=== PATIENT | male | born 1940 | race Caucasian/White ===

== ENCOUNTER → 2017-11-07 | Outpatient (CLI) | payer OTHER ==
[~2017-11-07] MED LIST: ACET325; AMLO5 PO; ASCO500 PO; ASPI325 PO; ATEN50 PO; ATOR20 PO; ATOR40TA PO; BACL10 PO; BISA10S; BISM300CH; CALCA500CH; CILO50 PO; CLOP75 PO; CYAN500 PO; Cilostazol50 MG PO; DOCU100; ENOX40I SC; ESCI10 PO; FAMO20; FOLI1 PO; FOLIC ACID PO; Feosol45 MG; Ferrous Fumara324 MG PO; GLIP10 PO; Glucophage1000 MG PO; Glucotrol10 MG PO; HYDACE10B; HYDACE10B PO; HYDCHL25 PO; INSULANPEN; INSULANPEN SC; Iron Supplemen325 MG PO; Januvia50 MG PO; LEVFLO500 PO; LISI20 PO; LISI5 PO; METF500 PO; METF850; MIRT15 PO; MULT50L; MULTI VITAMIN1 EACH PO; MULVITMINF PO; Milk Of Ma400 MG/5 M; NEBI5 PO; Norco 10-325 T1 EACH PO; OMEP20ER PO; PANT40 PO; POTCHL20ER PO; RIFA300 PO; RXHYD5325 PO; RXSULTRIDS PO; SKIEMOTC1; TOUJEO SOL300 UNIT/1 SC; ZOLP5
[2017-11-07 14:18] LABS: Bilirubin, Urine Neg (Neg); Blood, Urine Neg (Neg); Glucose Qualitative, Urine Neg (Neg); Ketones, Urine Neg (Neg); Leukocyte Esterase, Urine Neg (Neg); Nitrite, Urine Neg (Neg); Protein, Urine Neg (Neg); Urobilinogen, Urine NORM (Normal)
[2017-11-07 14:30] LABS: Appearance, Urine Clear (Clear); Color, Urine Pale Yellow (P-Yellow)
== END | disposition home or self-care (01) ==
LOC: LAB 13:52
DX: N39.0 Urinary tract infection, site not specified (principal)
CPT/HCPCS: 81003; 87086

== ENCOUNTER 2018-02-07 18:12 | Emergency (ER) | payer OTHER ==
[~2018-02-07] VITALS: Ht 180.3 cm; Wt 94.3 kg
[~2018-02-07 18:12] MED LIST changes: -CYAN500 PO; -FOLIC ACID PO; -Ferrous Fumara324 MG PO; -Januvia50 MG PO; -PANT40 PO; -TOUJEO SOL300 UNIT/1 SC
[2018-02-07] MEDS ORDERED: FOLIC ACID PO (18:52)
[2018-02-07] MEDS ORDERED: Ferrous Fumara324 MG PO (18:52)
[2018-02-07] MEDS ORDERED: Januvia50 MG PO (19:01)
[2018-02-07] MEDS ORDERED: PANT40 PO (19:02)
[2018-02-07] MEDS ORDERED: TOUJEO SOL300 UNIT/1 SC (19:03)
[2018-02-07] MEDS ORDERED: CYAN500 PO (19:04)
[2018-02-07] MEDS ORDERED: ASCO500 PO (19:04)
== END 2018-02-07 20:25 | disposition home or self-care (01) ==
LOC: ER 18:12
DX: I10 Essential (primary) hypertension (principal); E11.9 Type 2 diabetes mellitus without complications; Z79.899 Other long term (current) drug therapy; Z79.82 Long term (current) use of aspirin; Z79.4 Long term (current) use of insulin
CPT/HCPCS: 93005; 93010; 99283

== ENCOUNTER → 2018-05-12 | Outpatient (CLI) | payer OTHER ==
[~2018-05-12] MED LIST changes: +CYAN500 PO; +FOLIC ACID PO; +Ferrous Fumara324 MG PO; +Januvia50 MG PO; +PANT40 PO; +TOUJEO SOL300 UNIT/1 SC
[2018-05-12 15:17] LABS: Bilirubin, Urine Neg (Neg); Blood, Urine 5+ (Neg); Glucose Qualitative, Urine Neg (Neg); Ketones, Urine Neg (Neg); Leukocyte Esterase, Urine 3+ (Neg); Nitrite, Urine Neg (Neg); Protein, Urine 2+ (Neg); Urobilinogen, Urine NORM (Normal)
[2018-05-12 15:48] LABS: Appearance, Urine Cloudy (Clear); Color, Urine Yellow (P-Yellow)
[2018-05-12 15:49] LABS: Bacteria Many /hpf; Red Blood Cells, Urine 50-100 /hpf (0-2); Squamous Epithelial Cells Few /hpf (Few); White Blood Cells, Urine 25-50 /hpf (0-5)
== END | disposition home or self-care (01) ==
LOC: LAB SHORT 12:45 → LAB 12:45
DX: N39.0 Urinary tract infection, site not specified (principal)
CPT/HCPCS: 81001; 87077; 87086; 87186

== ENCOUNTER → 2018-10-27 | Outpatient (CLI) | payer OTHER ==
[2018-10-27 13:41] LABS: Appearance, Urine Clear (Clear); Bilirubin, Urine Neg (Neg); Blood, Urine Neg (Neg); Color, Urine Yellow (P-Yellow); Glucose Qualitative, Urine 1+ (Neg); Ketones, Urine Neg (Neg); Leukocyte Esterase, Urine Neg (Neg); Nitrite, Urine Neg (Neg); Protein, Urine 1+ (Neg); Urobilinogen, Urine NORM (Normal)
== END | disposition home or self-care (01) ==
LOC: LAB SHORT 13:18 → LAB 13:18
DX: N39.0 Urinary tract infection, site not specified (principal)
CPT/HCPCS: 87086

== ENCOUNTER → 2019-01-26 | Outpatient (CLI) | payer OTHER ==
[2019-01-26 12:27] LABS: Bilirubin, Urine Neg (Neg); Blood, Urine Neg (Neg); Glucose Qualitative, Urine Neg (Neg); Ketones, Urine Neg (Neg); Leukocyte Esterase, Urine Neg (Neg); Nitrite, Urine Neg (Neg); Protein, Urine Neg (Neg); Specific Gravity, Urine 1.015 (1.003-1.022); Urobilinogen, Urine NORM (Normal)
[2019-01-26 12:36] LABS: Appearance, Urine Clear (Clear); Color, Urine Yellow (P-Yellow)
== END | disposition home or self-care (01) ==
LOC: LAB SHORT 12:04 → LAB 12:04
DX: N39.0 Urinary tract infection, site not specified (principal)
CPT/HCPCS: 81003; 87086

== ENCOUNTER → 2019-06-08 | Outpatient (CLI) | payer OTHER ==
[2019-06-08 10:59] LABS: Source, Urine Voided
[2019-06-08 12:49] LABS: Bilirubin, Urine Neg (Neg); Blood, Urine Neg (Neg); Glucose Qualitative, Urine Neg (Neg); Ketones, Urine Neg (Neg); Leukocyte Esterase, Urine Neg (Neg); Nitrite, Urine Neg (Neg); Protein, Urine Neg (Neg); Specific Gravity, Urine 1.015 (1.003-1.022); Urobilinogen, Urine NORM (Normal)
[2019-06-08 13:00] LABS: Appearance, Urine Clear (Clear); Color, Urine Yellow (P-Yellow)
== END | disposition home or self-care (01) ==
LOC: LAB SHORT 07:30 → LAB 07:30
DX: N39.0 Urinary tract infection, site not specified (principal)
CPT/HCPCS: 81003; 87086

== ENCOUNTER 2019-08-11 11:36 | Emergency (ER) | payer OTHER ==
[~2019-08-11] VITALS: Ht 180.3 cm; Wt 101.6 kg
== END 2019-08-11 12:51 | disposition home or self-care (01) ==
LOC: ER 11:36
DX: S00.81XA Abrasion of other part of head, initial encounter (principal); S80.212A Abrasion, left knee, initial encounter; E11.51 Type 2 diabetes mellitus with diabetic peripheral angiopathy without gangrene; Z79.4 Long term (current) use of insulin; Z79.899 Other long term (current) drug therapy; Z79.82 Long term (current) use of aspirin; W18.30XA Fall on same level, unspecified, initial encounter
CPT/HCPCS: 70450; 99284-25

== ENCOUNTER → 2020-01-04 | Outpatient (CLI) | payer OTHER ==
[2020-01-04 15:19] LABS: Source, Urine Clean Catch
[2020-01-04 18:12] LABS: Bilirubin, Urine Neg (Neg); Blood, Urine 1+ (Neg); Glucose Qualitative, Urine Neg (Neg); Ketones, Urine Neg (Neg); Leukocyte Esterase, Urine 3+ (Neg); Nitrite, Urine Pos (Neg); Protein, Urine 1+ (Neg); Urobilinogen, Urine NORM (Normal)
[2020-01-04 18:41] LABS: Appearance, Urine Hazy (Clear); Color, Urine Yellow (P-Yellow)
[2020-01-04 18:43] LABS: Amorphous Light (0-Heavy); Bacteria Mod /hpf; Red Blood Cells, Urine 0-2 /hpf (0-2); Squamous Epithelial Cells Few /hpf (Few)
== END | disposition home or self-care (01) ==
LOC: LAB 13:30 → LAB SHORT 13:30
DX: N39.0 Urinary tract infection, site not specified (principal)
CPT/HCPCS: 81001; 87077; 87086; 87186

== ENCOUNTER → 2020-01-05 | Outpatient (CLI) | payer OTHER | END | disposition home or self-care (01) | LOC: PLD 13:25 → LAB SHORT 13:25 | DX: D48.5 Neoplasm of uncertain behavior of skin (principal) | CPT/HCPCS: 88305; 88312 ==

== ENCOUNTER → 2021-04-20 | Outpatient (CLI) | payer OTHER | END | disposition home or self-care (01) | LOC: LAB SHORT 09:00 → LAB 09:00 → LAB FUT 04-11 13:15 | DX: E78.2 Mixed hyperlipidemia (principal); E11.51 Type 2 diabetes mellitus with diabetic peripheral angiopathy without gangrene; E11.22 Type 2 diabetes mellitus with diabetic chronic kidney disease; N18.31 Chronic kidney disease, stage 3a; D63.1 Anemia in chronic kidney disease; D50.9 Iron deficiency anemia, unspecified | CPT/HCPCS: 82043 ==

== ENCOUNTER → 2021-09-05 | Outpatient (CLI) | payer OTHER ==
[2021-09-05 13:47] LABS: Bilirubin, Urine Neg (Neg); Blood, Urine Neg (Neg); Glucose Qualitative, Urine Neg (Neg); Ketones, Urine Neg (Neg); Leukocyte Esterase, Urine 1+ (Neg); Nitrite, Urine Neg (Neg); Protein, Urine 1+ (Neg); Urobilinogen, Urine NORM (Normal)
[2021-09-05 14:28] LABS: Appearance, Urine Hazy (Clear); Color, Urine Yellow (P-Yellow)
[2021-09-05 14:31] LABS: Amorphous Light (0-Heavy); Bacteria Many /hpf; Hyaline Casts 0-2 /lpf (0-2); Red Blood Cells, Urine Rare /hpf (0-2); Squamous Epithelial Cells Mod /hpf (Few); Transitional Epithelial Cells Rare /hpf (0-Rare)
== END | disposition home or self-care (01) ==
LOC: LAB SHORT 12:45
PROVIDERS: Nurse Practitioner Family
DX: N39.0 Urinary tract infection, site not specified (principal)
CPT/HCPCS: 81001

== ENCOUNTER → 2021-12-21 | Outpatient (CLI) | payer OTHER ==
[2021-12-21 15:20] LABS: Appearance, Urine Cloudy (Clear); Bilirubin, Urine Neg (Neg); Blood, Urine 1+ (Neg); Color, Urine Yellow (P-Yellow); Glucose Qualitative, Urine 1+ (Neg); Ketones, Urine 1+ (Neg); Leukocyte Esterase, Urine 3+ (Neg); Nitrite, Urine Neg (Neg); Protein, Urine 2+ (Neg); Urobilinogen, Urine NORM (Normal)
[2021-12-21 16:25] LABS: Red Blood Cells, Urine 0-2 /hpf (0-2)
[2021-12-21 16:26] LABS: Bacteria Many /hpf; Mucus Light (0-Heavy); Squamous Epithelial Cells Few /hpf (Few)
== END | disposition home or self-care (01) ==
LOC: LAB SHORT 10:25
PROVIDERS: Family Medicine
DX: N39.0 Urinary tract infection, site not specified (principal)
CPT/HCPCS: 81001

== ENCOUNTER → 2022-03-12 | Outpatient (CLI) | payer OTHER ==
[2022-03-13 12:20] LABS: Appearance, Urine Hazy (Clear); Bilirubin, Urine Neg (Neg); Blood, Urine 2+ (Neg); Color, Urine Yellow (P-Yellow); Glucose Qualitative, Urine 3+ (Neg); Ketones, Urine Neg (Neg); Leukocyte Esterase, Urine 3+ (Neg); Nitrite, Urine Neg (Neg); Protein, Urine 1+ (Neg); Specific Gravity, Urine 1.015 (1.003-1.022); Urobilinogen, Urine NORM (Normal)
[2022-03-13 12:51] LABS: Triple Phosphate Crystals Many /hpf
[2022-03-13 12:52] LABS: Red Blood Cells, Urine 0-2 /hpf (0-2); White Blood Cells, Urine 0-2 /hpf (0-5)
[2022-03-13 12:53] LABS: Amorphous Mod (0-Heavy); Bacteria Many /hpf; Squamous Epithelial Cells Few /hpf (Few)
== END | disposition home or self-care (01) ==
LOC: LAB 18:00 → LAB SHORT 18:00
PROVIDERS: Family Medicine
DX: N39.0 Urinary tract infection, site not specified (principal)
CPT/HCPCS: 81001

== ENCOUNTER → 2022-06-19 | Outpatient (CLI) | payer OTHER ==
[2022-06-20 15:18] LABS: Appearance, Urine Cloudy (Clear); Bilirubin, Urine Neg (Neg); Blood, Urine 2+ (Neg); Color, Urine Yellow (P-Yellow); Glucose Qualitative, Urine Neg (Neg); Ketones, Urine Neg (Neg); Leukocyte Esterase, Urine 3+ (Neg); Nitrite, Urine Pos (Neg); Protein, Urine 2+ (Neg); Specific Gravity, Urine 1.015 (1.003-1.022); Urobilinogen, Urine NORM (Normal)
[2022-06-20 15:31] LABS: Bacteria Many /hpf; Squamous Epithelial Cells Few /hpf (Few); White Blood Cells, Urine TNTC /hpf (0-5)
== END | disposition home or self-care (01) ==
LOC: LAB 17:15 → LAB SHORT 17:15
PROVIDERS: Nurse Practitioner Family
DX: N39.0 Urinary tract infection, site not specified (principal)
CPT/HCPCS: 81001; 87077; 87086; 87186

== ENCOUNTER → 2022-07-24 | Outpatient (CLI) | payer OTHER ==
[2022-07-25 12:19] LABS: Appearance, Urine Cloudy (Clear); Bilirubin, Urine Neg (Neg); Blood, Urine 2+ (Neg); Color, Urine Yellow (P-Yellow); Glucose Qualitative, Urine Neg (Neg); Ketones, Urine Neg (Neg); Leukocyte Esterase, Urine 3+ (Neg); Nitrite, Urine Neg (Neg); Protein, Urine 1+ (Neg); Specific Gravity, Urine 1.015 (1.003-1.022); Urobilinogen, Urine NORM (Normal)
[2022-07-25 12:46] LABS: Amorphous Light (0-Heavy); Bacteria Many /hpf; Calcium Oxalate Crystals Rare /hpf; Squamous Epithelial Cells Mod /hpf (Few); White Blood Cells, Urine 25-50 /hpf (0-5)
== END | disposition home or self-care (01) ==
LOC: LAB SHORT 16:00
PROVIDERS: Nurse Practitioner Family
DX: N39.0 Urinary tract infection, site not specified (principal)
CPT/HCPCS: 81001

== ENCOUNTER → 2022-08-13 | Outpatient (CLI) | payer OTHER | END | disposition home or self-care (01) | LOC: LAB 12:48 → LAB SHORT 12:48 | DX: R35.0 Frequency of micturition (principal) | CPT/HCPCS: 87077; 87086; 87186 ==

== ENCOUNTER → 2022-08-21 | Outpatient (CLI) | payer OTHER ==
[2022-08-21 16:56] LABS: Appearance, Urine Hazy (Clear); Bilirubin, Urine Neg (Neg); Blood, Urine 2+ (Neg); Color, Urine Yellow (P-Yellow); Glucose Qualitative, Urine Neg (Neg); Ketones, Urine Neg (Neg); Leukocyte Esterase, Urine 3+ (Neg); Nitrite, Urine Neg (Neg); Protein, Urine 2+ (Neg); Urobilinogen, Urine NORM (Normal)
[2022-08-21 17:15] LABS: Bacteria Many /hpf; Squamous Epithelial Cells Few /hpf (Few); White Blood Cells, Urine TNTC /hpf (0-5)
== END | disposition home or self-care (01) ==
LOC: LAB SHORT 15:53
PROVIDERS: Nurse Practitioner Family
DX: N39.0 Urinary tract infection, site not specified (principal)
CPT/HCPCS: 81001; 87077; 87086; 87186

== ENCOUNTER 2022-09-30 12:28 | Emergency (ER) | payer OTHER ==
[~2022-09-30] VITALS: Ht 180.3 cm; Wt 95.7 kg
[2022-09-30 12:42] LABS: Source, Urine Clean Catch
[2022-09-30 12:49] LABS: Appearance, Urine Hazy (Clear); Bilirubin, Urine Neg (Neg); Blood, Urine 3+ (Neg); Color, Urine Yellow (P-Yellow); Glucose Qualitative, Urine Neg (Neg); Ketones, Urine Neg (Neg); Leukocyte Esterase, Urine 3+ (Neg); Nitrite, Urine Pos (Neg); Protein, Urine 2+ (Neg); Specific Gravity, Urine 1.005 (1.003-1.022); Urobilinogen, Urine NORM (Normal)
[2022-09-30 13:05] LABS: Bacteria Many /hpf; Red Blood Cells, Urine TNTC /hpf (0-2); Squamous Epithelial Cells Mod /hpf (Few); White Blood Cells, Urine TNTC /hpf (0-5)
[2022-09-30] MEDS ORDERED: CEFD300 PO (13:49)
== END 2022-09-30 16:52 | disposition home or self-care (01) ==
LOC: ER 12:28
PROVIDERS: Emergency Medicine
DX: E11.649 Type 2 diabetes mellitus with hypoglycemia without coma (principal); N39.0 Urinary tract infection, site not specified; I10 Essential (primary) hypertension; Z79.4 Long term (current) use of insulin; Z79.899 Other long term (current) drug therapy; Z79.82 Long term (current) use of aspirin
CPT/HCPCS: 81001; 82947; A9270

== ENCOUNTER → 2022-11-07 | Outpatient (CLI) | payer OTHER ==
[~2022-11-07] MED LIST changes: +CEFD300 PO
[2022-11-08 10:42] LABS: Appearance, Urine Clear (Clear); Bilirubin, Urine Neg (Neg); Blood, Urine 1+ (Neg); Color, Urine Yellow (P-Yellow); Glucose Qualitative, Urine 3+ (Neg); Ketones, Urine Neg (Neg); Leukocyte Esterase, Urine Neg (Neg); Nitrite, Urine Pos (Neg); Protein, Urine 2+ (Neg); Urobilinogen, Urine NORM (Normal)
[2022-11-08 10:58] LABS: Red Blood Cells, Urine 0-2 /hpf (0-2); Squamous Epithelial Cells Few /hpf (Few); White Blood Cells, Urine 0-2 /hpf (0-5)
[2022-11-08 10:59] LABS: Bacteria Many /hpf
== END | disposition home or self-care (01) ==
LOC: LAB SHORT 19:30
PROVIDERS: Nurse Practitioner Family
DX: N39.0 Urinary tract infection, site not specified (principal)
CPT/HCPCS: 81001; 87086

== ENCOUNTER → 2022-12-10 | Outpatient (CLI) | payer OTHER ==
[2022-12-10 12:30] LABS: Source, Urine Voided
[2022-12-10 12:52] LABS: Appearance, Urine Cloudy (Clear); Bilirubin, Urine Neg (Neg); Blood, Urine 2+ (Neg); Color, Urine Yellow (P-Yellow); Glucose Qualitative, Urine 3+ (Neg); Ketones, Urine Neg (Neg); Leukocyte Esterase, Urine 3+ (Neg); Nitrite, Urine Neg (Neg); Protein, Urine 2+ (Neg); Urobilinogen, Urine NORM (Normal); pH, Urine 6.5 (5.0-8.0)
[2022-12-10 13:06] LABS: White Blood Cells, Urine 25-50 /hpf (0-5)
[2022-12-10 13:07] LABS: Bacteria Many /hpf; Mucus Mod (0-Heavy); Squamous Epithelial Cells Few /hpf (Few)
== END | disposition home or self-care (01) ==
LOC: LAB SHORT 12:28 → LAB 12:28
PROVIDERS: Nurse Practitioner Family
DX: N39.0 Urinary tract infection, site not specified (principal)
CPT/HCPCS: 81001; 87077; 87086; 87186

== ENCOUNTER → 2023-03-18 | Outpatient (CLI) | payer OTHER ==
[2023-03-18 13:03] LABS: Source, Urine Voided
[2023-03-18 15:32] LABS: Appearance, Urine Clear (Clear); Bilirubin, Urine Neg (Neg); Blood, Urine Neg (Neg); Color, Urine Yellow (P-Yellow); Glucose Qualitative, Urine Neg (Neg); Ketones, Urine Neg (Neg); Leukocyte Esterase, Urine Neg (Neg); Nitrite, Urine Neg (Neg); Protein, Urine 1+ (Neg); Specific Gravity, Urine 1.015 (1.003-1.022); Urobilinogen, Urine NORM (Normal)
== END | disposition home or self-care (01) ==
LOC: LAB SHORT 13:01 → LAB 13:01
PROVIDERS: Nurse Practitioner Family
DX: N39.0 Urinary tract infection, site not specified (principal)
CPT/HCPCS: 87077; 87086; 87186

== ENCOUNTER 2023-06-17 00:37 | Inpatient (IN) | payer OTHER ==
[2023-06-17] VITALS (29 sets, daily range): BP systolic 83–144; BP diastolic 44–96
[~2023-06-17] VITALS: Ht 180.3 cm; Wt 79.3 kg
[~2023-06-17 00:37] MED LIST changes: -Glucophage1000 MG PO
[2023-06-17] MEDS ORDERED: OZEMPIC0.25 MG/02 SQ (00:53)
[2023-06-17] MEDS ORDERED: TRAZ50 PO (00:53)
[2023-06-17] MEDS ORDERED: Calcium Carbon500 MG PO (00:54)
[2023-06-17] MEDS ORDERED: BISA5EC PO (00:54)
[2023-06-17 00:55] LABS: BASOPHILS ABSOLUTE AUTO 0.03 K/mm3 (0.00-0.23); BASOPHILS PERCENT AUTO 0 % (0-2); EOSINOPHILS ABSOLUTE AUTO 0.18 K/mm3 (0.00-0.68); EOSINOPHILS PERCENT AUTO 2 % (0-6); Hematocrit 38.1 % (37.0-53.0); Hemoglobin 12.3 g/dL (13.5-17.5); IMMATURE GRAN ABSOLUTE AUTO 0.03 K/mm3 (0.00-0.10); IMMATURE GRAN PERCENT AUTO 0 % (0-1); LYMPHOCYTES ABSOLUTE AUTO 2.12 K/mm3 (0.84-5.20); LYMPHOCYTES PERCENT AUTO 26 % (21-46); MONOCYTES ABSOLUTE AUTO 0.55 K/mm3 (0.16-1.47); MONOCYTES PERCENT AUTO 7 % (4-13); Mean Corpuscular HGB 28.1 pg (26.0-34.0); Mean Corpuscular HGB Conc 32.3 g/dL (31.5-36.5); Mean Corpuscular Volume 87 fL (80-100); Mean Platelet Volume 9.6 fL (9.1-12.4); NEUTROPHILS ABSOLUTE AUTO 5.36 K/mm3 (1.96-9.15); NEUTROPHILS PERCENT AUTO 65 % (41-73); Platelet Count 197 K/mm3 (150-400); RDW Coefficient Variation 14.8 % (11.7-14.2); RDW Standard Deviation 47.8 fL (35.1-46.3); Red Blood Cell Count 4.37 M/mm3 (4.30-5.90); White Blood Cell Count 8.27 K/mm3 (4.00-11.30)
[2023-06-17] MEDS ORDERED: CETI5 PO (00:55)
[2023-06-17] MEDS ORDERED: DIPATR PO (00:55)
[2023-06-17] MEDS ORDERED: NYSTRIT TOP (00:55)
[2023-06-17] MEDS ORDERED: [UNRECOGNIZED DRUG - CODE] PO (00:55)
[2023-06-17] MEDS ORDERED: PANT20 PO (00:55)
[2023-06-17] MEDS ORDERED: DULCOLAX400 MG/5 M PO (00:55)
[2023-06-17 01:10] LABS: International Normalized Ratio 1.03; Prothrombin Time Results 10.8 Sec (9.7-11.5)
[2023-06-17 01:13] LABS: Alanine Aminotransfer (ALT/SGP 21 U/L (12-78); Albumin, Blood 3.5 g/dL (3.4-5.0); Albumin/Globulin Ratio 0.8 (0.8-1.8); Alk Phos 110 U/L (50-136); Anion Gap 8 mmol/L (6-16); Aspartate Aminotrans (AST/SGOT 30 U/L (12-37); Bilirubin, Total 0.5 mg/dL (0.1-1.0); Blood Urea Nitrogen 17 mg/dL (8-24); Bun/Creatinine Ratio 15.6 (12.0-20.0); CO2, Blood 27 mmol/L (21-32); Calcium, Blood 8.9 mg/dL (8.5-10.1); Chloride, Blood 106 mmol/L (98-108); Creatinine, Blood 1.09 mg/dL (0.60-1.20); Globulin, Blood 4.6 g/dL (2.2-4.0); Glomerular Filtration Rate 67 (60-); Glucose, Blood 211 mg/dL (70-99); Potassium, Blood 4.2 mmol/L (3.5-5.5); Sodium, Blood 141 mmol/L (136-145); Total Protein, Blood 8.1 g/dL (6.4-8.2)
[2023-06-17 02:59] LABS: CHOL/HDL RATIO 5.9; Cholesterol 229 mg/dL (50-200); HDL Cholesterol 39 mg/dL (>39); LDL/HDL RATIO 3.6; Low Density Lipoprotein Chol 141 mg/dL (0-110); Triglycerides 245 mg/dL (30-160); Very Low Density Lipoprot Chol 49 mg/dL (6-32)
--- NOTE | 2023-06-17 05:54 | NUR ---
Admit/ End of shift note. Pt admitted from the ED to PCU5. Pt was oriented to room and call light system. Pt seems to be BARROW, reports he does not have hearing aids. Staff struggled to get admission information unless looking and speaking in loud voice. Poor historian. Pt is pleasant and cooperative with care. Denies any more chest pain overnight. VSS. Hep gtt continues to infuse. Pt is able to make needs known, call light is within reach. Bed alarm is active.
--- NOTE | 2023-06-17 08:08 | NUR ---
PT A&OX4, HARD OF HEARING, ABLE TO MAKE NEEDS KNOWN. PT HAS UPPER DENTURES THAT HE LEFT AT HOME, HAS A FEW OF HIS OWN BOTTOM TEETH IN THE FRONT. PT O2 SATURATION ABOVE 93% ON RA, PT DENIES SOB. PT STATED LAST BM WAS 3 DAYS AGO, AND THAT IS NORMAL FOR HIM. PT HAS HX L BKA. PULSE PRESENT BUT FAINT ON R FOOT. IV TO L FOREARM PATENT AND INFUSING, NO REDNESS/SWELLING/PAIN. PT HE HAS INTERMITTENT INCONTINENCE, CONDOM CATH OFFERED, PT PREFERS URINAL AND ATTENDS. PT BP STABLE, HR 90'S, PT DENIES CHEST PAIN/PRESSURE MANAGER PLAN IN TO SPEAK WITH PT FIRST THING THIS MORNING, PT DUE TO GO TO IMPLEMENTATION ENGINEER THIS MORNING. CALL LIGHT WITHIN REACH.
--- NOTE | 2023-06-17 10:49 | NUR ---
PT RETURNED FROM [facility] AT 0950. UNKNOWN AMOUNT OF AIR IN TR BAND ON R RADIAL SITE, [facility] STAFF STATED POSSIBLY 12. MONITORING R GROING AND R RADIAL SITE. 1ML AIR WAS REMOVED UPON PT'S ARRIVAL BACK TO UNIT HAND WAS BLUE. PT SET UP FOR AUTOMATIC VITALS PER PROTOCOL. HEPARIN STILL STOPPED PER NEWS CAMERA OPERATOR, PHARMACY NOTIFIED. NO INTERVENTIONS DONE AT THIS TIME. PT IN ROOM HAVING ECHO PERFORMED. CALL LIGHT WITHIN REACH.
--- NOTE | 2023-06-17 14:47 | NUR ---
2ML AIR REMOVED FROM TR BAND AT 1155, 4ML AIR REMOVED AT 1213, 2ML AIR REMOVED AT 1230, 2 REMOVED AT 1247, 3ML AIR REMOVED AT 1325. TR BAND REMOVED AT 2:45, ARM BOARD IN PLACE, PT TOLERATED WELL. R GROIN ACCESS POINT SOFT, NONTENDER, NO SWELLING, ZERO HEMATOMA. R RADIAL ACCESS POINT SOFT, PATIENT SAID IT WAS A LITTLE TENDER, SMALL AMOUNT OF SWELLING ABOVE WHERE TR BAND WAS PLACED, LOOKS LIKE IT IS FROM TR BAND BEING TIGHT. PT DENIES NUMBNESS/TINGLING OF R HAND, CAPILLARY REFILL LESS THAN 3 SECONDS IN R HAND. PT'S SON IS IN ROOM VISITING WITH PT. HEPARIN RE-STARTED AT 1436 PER EMAR, PHARMACY NOTIFIED. CALL LIGHT WITHIN REACH.
--- NOTE | 2023-06-17 16:22 | NUR ---
PT'S SON LEFT. PT IS RESTING IN BED AND WATCHING TV. SWELLING ABOVE WHERE TR BAND WAS IS STARTING TO GO DOWN, PT STATED IT IS NO LONGER TENDER. R GROIN SITE CONTINUES TO HAVE NO SWELLING, BLEEDING, 0 HEMATOMA, SOFT AND NONTENDER. CALL LIGHT WITHIN REACH.
--- NOTE | 2023-06-17 16:49 | NUR ---
SHIFT SUMMARY NO ACUTE CHANGES, SEE PREVIOUS NOTES. SWELLING THAT OCCURED ABOVE TR BAND CONTINUES TO GO DOWN, NO BLEEDING, SOFT, AND PT CONTINUES TO REPORT NONTENDER. PT HAS INTERMITTENT MOMENTS OF CONFUSION AND HE THINKS HE'S IN A DIFFERENT CITY AND STATE WHERE HE USED TO LIVE. PT KEEPS ASKING QUESTIONS ABOUT HIS CONDITION THAT HE HAS ALREADY ASKED AND GOTTEN THE ANSWERS TO, UNABLE TO ASSESS IF PT IS JUST NOT UNDERSTANDING WHAT HE IS BEING TOLD OR IF HE KEEPS FORGETTING. WHEN I ANSWER HIS QUESTIONS AND ASK HIM IF HE UNDERSTANDS HE SAYS YES, BUT THEN HE ASKS AGAIN LATER. HIS SON SAID THAT PT DOES HAVE MOMENTS OF CONFUSION, AND THEY HAVE BEEN BECOMING MORE FREQUENT RECENTLY. PT'S SON SAID THAT HIS DAUGHTER (PT'S GRANDDAUGHTER) WHO LIVES IN [place] IS PT'S POWER OF FACTORY LABORER. I DID NOT SEE POWER OF FACTORY LABORER ON FILE, EMAIL AND FAX NUMBER WAS GIVEN TO SON TO PASS ON TO HIS DAUGHTER. PT'S SON SAID THAT HE IS GOING TO TALK WITH HIS DAUGHTER AND HIS DAD AND DETERMINE IF THEY WANT TO TRY AND GO FORWARD WITH SURGERY OR TO CHOOSE MEDICAL MANAGEMENT. PT'S VITALS CONTINUE TO BE STABLE. PT CONTINUES TO DENY CHEST PAIN/PRESSURE/SOB/DIZZINESS. PT IS RESTING IN BED, CALL LIGHT WITHIN REACH.
[2023-06-18] VITALS (20 sets, daily range): BP systolic 70–110; BP diastolic 41–73
[2023-06-18 03:22] LABS: BASOPHILS ABSOLUTE AUTO 0.03 K/mm3 (0.00-0.23); BASOPHILS PERCENT AUTO 0 % (0-2); EOSINOPHILS ABSOLUTE AUTO 0.07 K/mm3 (0.00-0.68); EOSINOPHILS PERCENT AUTO 1 % (0-6); Hematocrit 32.2 % (37.0-53.0); Hemoglobin 10.8 g/dL (13.5-17.5); IMMATURE GRAN ABSOLUTE AUTO 0.02 K/mm3 (0.00-0.10); IMMATURE GRAN PERCENT AUTO 0 % (0-1); LYMPHOCYTES ABSOLUTE AUTO 1.31 K/mm3 (0.84-5.20); LYMPHOCYTES PERCENT AUTO 17 % (21-46); MONOCYTES ABSOLUTE AUTO 0.73 K/mm3 (0.16-1.47); MONOCYTES PERCENT AUTO 10 % (4-13); Mean Corpuscular HGB 28.2 pg (26.0-34.0); Mean Corpuscular HGB Conc 33.5 g/dL (31.5-36.5); Mean Corpuscular Volume 84 fL (80-100); Mean Platelet Volume 9.9 fL (9.1-12.4); NEUTROPHILS ABSOLUTE AUTO 5.37 K/mm3 (1.96-9.15); NEUTROPHILS PERCENT AUTO 71 % (41-73); Platelet Count 188 K/mm3 (150-400); RDW Coefficient Variation 14.9 % (11.7-14.2); RDW Standard Deviation 45.1 fL (35.1-46.3); Red Blood Cell Count 3.83 M/mm3 (4.30-5.90); White Blood Cell Count 7.53 K/mm3 (4.00-11.30)
[2023-06-18 03:40] LABS: Albumin, Blood 3.2 g/dL (3.4-5.0); Albumin/Globulin Ratio 0.9 (0.8-1.8); Bilirubin, Total 0.9 mg/dL (0.1-1.0); Bun/Creatinine Ratio 16.7 (12.0-20.0); Calcium, Blood 8.2 mg/dL (8.5-10.1); Creatinine, Blood 1.02 mg/dL (0.60-1.20); Globulin, Blood 3.7 g/dL (2.2-4.0); Total Protein, Blood 6.9 g/dL (6.4-8.2)
--- NOTE | 2023-06-18 04:47 | NUR ---
SHIFT SUMMARY PT ALERT, ORIENTED TO SELF, LOCATION. INTERMITTENT CONFUSION, [place]. SP02>90% ON RA. OCCASIONALLY DESATS TO 70'S WHEN SLEEPING W/ QUICK RECOVERY. TELEMETRY SHOWS NSR, HR MOSTLY 80'S-90'S. BP SOFT. PT HAS R RADIAL SITE, RECOVERED. NO BRUISING. NO BLEEDING. NO HEMATOMA NOTED. ARM BOARD IN PLACE. PT HAS R FEMORAL SITE, NO ACTIVE BLEEDING. UPON CARE ASSUMPTION, BANDAGE W/ BLOOD, CHG DRESSING OUTLINED. BLEEDING DID NOT GO PAST OUTLINE THIS SHIFT. AREA AROUND SITE SOFT. PT DENIES PAIN/TENDERNESS TO LOCATION. HEP GTT INFUSING PER EMAR. NPO SINCE MIDNIGHT. PT INCONTINENT, C/D ATTENDS IN PLACE. REPOSITIONED Q2H. CALL LIGHT IN REACH.
--- NOTE | 2023-06-18 09:46 | NUR ---
DRUM FILLER IN TO SPEACH WITH PT, HE SPOKE WITH PTS SON YESTERDAY, AND PLAN FOR NOW IS TO CONTINUE WITH MEDICAL MANAGEMENT AND HOLD OFF ON ANY FUTHER CATHETERIZATION AND INTERVENTION ATTEMPTS.
--- NOTE | 2023-06-18 12:41 | NUR ---
PT DID NOT EAT BREAKFAST AND BARELY DRANK ANY FLUIDS, PT DID NOT EAT ANY OF HIS MEALS YESTERDAY AND BARELY DRANK WELL. THE ONLY THING PT ATE FOR ME YESTERDAY WAS AN ORANGE POPCICLE, HE ATE ONE AGAIN FOR ME TODAY. PT SAID HE WOULD EAT BREAKFAST TOMORROW IF IT WAS SCRAMBLED EGGS & TOAST WITH BUTTER, I PLACED A FOOD ORDER REQUESTING THAT FOR BREAKFAST FOR HIM TOMORROW. WHEN I AM IN THE ROOM AND HAND HIM HIS WATER AND ASK HIM TO TAKE A DRINK, HE WILL. MYSELF AND FIRING PIN GAUGER ARE HAVING HIM TAKE A DRINK WHENEVER WE GO INTO THE ROOM. PT IS RESTING IN BED WATCHING TV, CALL LIGHT WITHIN REACH.
--- NOTE | 2023-06-18 18:01 | NUR ---
Pt's son and granddaughter both agree for pt to return home to [facility] with hospice. Will check first thing in the morning as the hospice agencies are not able to state if they have room in the morning this late in the day.
[2023-06-19] VITALS (10 sets, daily range): BP systolic 86–132; BP diastolic 57–77
[2023-06-19 04:07] LABS: BASOPHILS ABSOLUTE AUTO 0.03 K/mm3 (0.00-0.23); BASOPHILS PERCENT AUTO 0 % (0-2); EOSINOPHILS ABSOLUTE AUTO 0.28 K/mm3 (0.00-0.68); EOSINOPHILS PERCENT AUTO 4 % (0-6); Hematocrit 33.9 % (37.0-53.0); Hemoglobin 11.1 g/dL (13.5-17.5); IMMATURE GRAN ABSOLUTE AUTO 0.03 K/mm3 (0.00-0.10); IMMATURE GRAN PERCENT AUTO 0 % (0-1); LYMPHOCYTES ABSOLUTE AUTO 1.99 K/mm3 (0.84-5.20); LYMPHOCYTES PERCENT AUTO 29 % (21-46); MONOCYTES ABSOLUTE AUTO 0.74 K/mm3 (0.16-1.47); MONOCYTES PERCENT AUTO 11 % (4-13); Mean Corpuscular HGB 28.2 pg (26.0-34.0); Mean Corpuscular HGB Conc 32.7 g/dL (31.5-36.5); Mean Corpuscular Volume 86 fL (80-100); Mean Platelet Volume 10.5 fL (9.1-12.4); NEUTROPHILS ABSOLUTE AUTO 3.88 K/mm3 (1.96-9.15); NEUTROPHILS PERCENT AUTO 56 % (41-73); Platelet Count 163 K/mm3 (150-400); RDW Coefficient Variation 15.3 % (11.7-14.2); Red Blood Cell Count 3.94 M/mm3 (4.30-5.90); White Blood Cell Count 6.95 K/mm3 (4.00-11.30)
[2023-06-19 04:40] LABS: Albumin, Blood 3.1 g/dL (3.4-5.0); Albumin/Globulin Ratio 0.8 (0.8-1.8); Bilirubin, Total 0.9 mg/dL (0.1-1.0); Bun/Creatinine Ratio 18.4 (12.0-20.0); Calcium, Blood 8.7 mg/dL (8.5-10.1); Creatinine, Blood 1.03 mg/dL (0.60-1.20); Globulin, Blood 4.1 g/dL (2.2-4.0); Potassium, Blood 3.9 mmol/L (3.5-5.5); Total Protein, Blood 7.2 g/dL (6.4-8.2)
--- NOTE | 2023-06-19 06:22 | NUR ---
NOC SHIFT SUMMARY PT SLEPT WELL OVERNIGHT. ORIENTED X3-4. CONFUSED ON WHERE HE WAS BUT EASILY REORIENTED. R GROIN SITE AND R WRIST SITE RECOVERED, CDI WITH TEGADERM IN PLACE. VSS, SR ON TELEMETRY. DENIES CP OR DISCOMFORT. INCONTINENT OF URINE MULTIPLE TIMES OVERNIGHT, PT Q2 TURNED AND ATTENDS CHANGED. PER PALLIATIVE CARE RN, PLAN FOR DISCHARGE HOME WITH HOSPICE TODAY. WILL PASS ON TO DAY RN
--- NOTE | 2023-06-19 09:31 | NUR ---
PT ALERT AND ABLE TO ANSWER ORIENTION QUESTIONS, HOWEVER HE FORGETS WHAT TOWN HE IS IN AT TIMES. PT'S SON SAID THAT PT HAS SOME DEMENTIA AND IT HAS BEEN GETTING WORSE LATELY. YESTERDAY PT REQUESTED EGGS WITH TOAST AND BUTTER FOR BREAKFAST, BUT HE DID NOT EAT ANY OF IT, HE SAID HE WASN'T HUNGRY, BUT HE DID EAT AN ORANGE POPSICLE. PT ON RA AND MAINTAINING 02 SATURATION ABOVE 93%, HE SOB. BP STABLE, HR SR 90'S-100'S, DENIES CHEST PAIN/PRESSURE/DIZZINESS. IV IN L AC PATENT, FLUSHED AND SALINE LOCKED. IV ON L FOREARM INFUSING WITH HEPARIN GTT PER EMAR. NO REDNESS/SWELLING/LEAKING/PAIN OF EITHER IV SITE. R RADIAL AND R GROIN SITE FROM CONTINUE TO HAVE NO BLEEDING OR HEMATOMA & SITES ARE SOFT. PT IS RESTING IN BED, WATCHING TV WITH CALL LIGHT WITHIN REACH.
[2023-06-19] MEDS ORDERED: METO25ER PO (11:14)
[2023-06-19] MEDS ORDERED: ASPI81CH PO (11:15)
[2023-06-19] MEDS ORDERED: ATOR40TA PO (11:15)
[2023-06-19] MEDS ORDERED: NITR.4SL SL (11:16)
--- NOTE | 2023-06-19 12:13 | NUR ---
PT DISCHARGED AT 12:13. TRANSPORT PICKED HIM UP [facility]IA [facility]. PT LEFT WITH ALL OF HIS BELONGINGS AND D/C INSTRUCTIONS. PT & TRANSPORTERS WERE TOLD HIS D/C INSTRUCTIONS WERE IN THE PATIENT BAG WITH HIS BELONGINGS. D/C INSTRUCTIONS GONE OVER WITH PT. CALL PLACED TO [facility] AND REPORT GIVEN. PT WAS STABLE AT TIME OF TRANSFER.
== END 2023-06-19 12:15 | disposition hospice, home (50) | DRG 281 ==
LOC: ER 00:37 → PCU 00:38
PROVIDERS: Emergency Medicine; ADMIT Internal Medicine
PROC: 4A023N7 Measurement of Cardiac Sampling and Pressure, Left Heart, Percutaneous Approach (ICD-10-PCS; principal; 2023-06-17)
PROC: B2111ZZ Fluoroscopy of Multiple Coronary Arteries using Low Osmolar Contrast (ICD-10-PCS; 2023-06-17)
PROC: B241ZZ3 Ultrasonography of Multiple Coronary Arteries, Intravascular (ICD-10-PCS; 2023-06-17)
DX: I21.09 ST elevation (STEMI) myocardial infarction involving other coronary artery of anterior wall (principal); I50.20 Unspecified systolic (congestive) heart failure; E11.51 Type 2 diabetes mellitus with diabetic peripheral angiopathy without gangrene; E78.5 Hyperlipidemia, unspecified; K21.9 Gastro-esophageal reflux disease without esophagitis; I11.0 Hypertensive heart disease with heart failure; I35.1 Nonrheumatic aortic (valve) insufficiency; F32.A Depression, unspecified; I25.10 Atherosclerotic heart disease of native coronary artery without angina pectoris; D64.9 Anemia, unspecified; E11.40 Type 2 diabetes mellitus with diabetic neuropathy, unspecified; Z89.512 Acquired absence of left leg below knee; Z98.890 Other specified postprocedural states; Z89.422 Acquired absence of other left toe(s); Z79.899 Other long term (current) drug therapy; Z79.84 Long term (current) use of oral hypoglycemic drugs; Z87.39 Personal history of other diseases of the musculoskeletal system and connective tissue
CPT/HCPCS: 36415; 71045; 76937; 80053; 80061; 82947; 83036; 83880; 84443; 84484; 85025; 85520; 85610; 85730; 93005; 93010; 93454; 96365-59; 96366; 96375; 99152; 99153; 99285-25; A9270; C1769; C1887; C1894; C8929; C9113; G0378; J1644; J2250; J3010; J7030; J7050; P9047; Q9957; Q9967